=== PATIENT | female | born 1960 | race Caucasian/White ===

== ENCOUNTER 2017-03-10 11:32 | Observation (INO) ==
--- NOTE | 2017-03-10 12:11 | Emergency Department Note ---
Disposition Clinical Impression: Chest pain Qualifiers: Chest pain type: precordial pain Qualified Code(s): R07.2 - Precordial pain Disposition: Home, Self-Care Condition: Good Time of Disposition: 18:42 General Adult HPI - General Chief complaint: ED Chest Pain Stated complaint: Chest discomfort, nausea Time Seen by Provider: 03/10/17 11:55 Source: patient Limitations: no limitations Nursing Notes Reviewed: Yes Vital Signs Reviewed: Yes - History of Present Illness HPI Narrative: Patient began having chest discomfort last night around 11:00. It was present until this morning prior to arrival to emergency department. She describes it as in the center of her chest with no radiation. There are no associated symptoms. Onset was sudden and awoke her from sleep. There are no provoking or alleviating factors. Quality is ache. Pain Scale: 4 - Related Data Home Medications Medication Instructions Recorded Confirmed Lisinopril [Zestril] 5 mg PO DAILY 03/10/17 03/10/17 NIFEdipine XL (24 HR) [Procardia 60 mg PO DAILY 03/10/17 03/10/17 XL] hydroCHLOROthiazide 25 mg PO DAILY 03/10/17 03/10/17 [Hydrochlorothiazide] Allergies Allergy/AdvReac Type Severity Reaction Status Date / Time No Known Allergies Allergy Verified 03/10/17 11:36 All systems ED: reviewed and negative except as stated. Constitutional: Denies: fever, chills ENT ED: Denies: congestion Cardiovascular: Reports: chest pain. Denies: palpitations, dyspnea on exertion , syncope Respiratory: Denies: cough, dyspnea Gastrointestinal: Denies: abdominal pain, nausea, vomiting, diarrhea Genitourinary: Denies: urgency, dysuria, frequency, hematuria Musculoskeletal: Denies: back pain, neck pain Neurological: Denies: headache, weakness Past Medical History - Past Medical History Medical history: Reports: hypertension Psychiatric history: Reports: no psych history - Social History Smoking Status: Current every day smoker Smokeless Tobacco Status: No Alcohol use: Reports: none Drug use: Reports: none Physical Exam - General Limitations: no limitations General appearance: alert, in no apparent distress - Head Head exam: atraumatic, normocephalic - Eye Eye exam: Present: normal appearance, PERRL, EOMI. Absent: scleral icterus - ENT ENT exam: normal exam, normal oropharynx, mucous membranes moist - Neck Neck exam: Present: normal inspection, full ROM, trachea midline - Chest Chest inspection: Present: normal inspection, symmetric chest wall rise. Absent : tenderness - Respiratory Respiratory exam: Present: normal lung sounds bilaterally. Absent: respiratory distress - Cardiovascular Cardiovascular exam: Present: regular rate, normal rhythm, normal heart sounds - Abdominal Exam Abdominal exam: Present: soft, Non-Tender, normal bowel sounds - Extremities Exam Extremities exam: Present: normal inspection, full ROM, normal capillary refill. Absent: tenderness, pedal edema - Back Exam Back exam: Present: normal inspection, full ROM. Absent: tenderness, CVA tenderness (L) - Neurological Exam Neurological exam: Present: alert, oriented X3 - Psychiatric Psychiatric exam: Present: normal affect, normal mood Course Course Narrative: Female patient presenting to the emergency department with complaint of chest pain. She states this started last night at 11:00. This woke her from sleep. She denies any associated symptoms such as shortness of breath diaphoresis or radiation of the pain. When she points where the chest pain was this appears to be epigastric in nature. She states she has had an episode of this pain one other time about a week ago. She did not seek treatment at that time. She states the pain was present up until arrival in the emergency department. She states that she feels comfortable at this time. She denies any shortness of breath. Her lung sounds are clear heart tones are normal. She said she does have a history of acid reflux that she only occasionally takes medication for. She states she ate hamburgers for dinner last night around 5:00 and did not go to bed until 10. She also has a history of high blood pressure that she occasionally takes medication for. She monitors this at home. She is a smoker but has no history of any heart problems. Is no cardiac history in her family other than her father has CHF. She is alert and oriented 3 and in no distress at this time. Her heart sounds are normal lung sounds are clear abdomen is soft and nontender on palpation. I cannot reproduce the pain at this time. She has no edema in any of her extremities. We will do a cardiac workup on patient. Patient's heart score is low risk so 1 troponin should be adequate to rule out ACS at this time. - Reevaluation(s) Reevaluation #1: Pt pain has returned. We will order her pain medication. And get a repeat EKG. Time: 12:52 Reevaluation #2: Patient has EKG changes on her EKG. There is no ST elevation or depression noted however we will be keeping patient for chest pain and new changes. We will admit for Chest pain and EKG changes. Time: 13:11 - Consultations Consultation #1: Spoke with Dr. Bright's nurse Brianda. They have been made aware of the EKG changes and we will fax them EKGs. Time: 13:11 Consultation #2: Dr Arreola accepted Pt in stable condition. Time: 13:44 Vital Signs Temperature 98.2 F 03/10/17 11:36 Pulse Rate 87 03/10/17 11:36 Respiratory Rate 16 03/10/17 11:36 Blood Pressure 94/56 03/10/17 11:36 O2 Sat by Pulse Oximetry 96 03/10/17 11:36 Temperature 99.1 F 03/10/17 18:21 Pulse Rate 74 03/10/17 18:21 Respiratory Rate 16 03/10/17 18:21 Blood Pressure 101/63 03/10/17 18:21 O2 Sat by Pulse Oximetry 96 03/10/17 18:21 Oxygen Delivery Oxygen Delivery Nasal Cannula Medical Decision Making - Medical Records Medical records reviewed: Yes I reviewed the patient's medical records. - Lab Data Lab results reviewed: Yes I reviewed the patient's lab results. Result diagrams: 03/10/17 12:21 03/10/17 12:21 Lab Results 03/10/17 03/10/17 03/10/17 Range/Units 12:21 12:21 12:21 WBC 13.8 H (4.3-11.1) K/mcL RBC 5.41 H (3.82-4.97) M/mcL Hgb 17.7 H (11.5-15.4) g/dL Hct 52.2 H (35.3-44.9) % MCV 96.5 (83.0-100.0) fL MCH 32.7 (28.0-33.3) pg MCHC 33.9 (31.6-35.5) g/dL RDW 12.1 (11.5-14.5) % Plt Count 218 (140-400) K/mcL MPV 10.3 (9.4-12.4) fL Immature Gran % 0.5 (0-4) % Seg Neutrophils % 82.8 % Lymphocytes % 11.6 % Monocytes % 4.5 % Eosinophils % 0.1 % Basophils % 0.5 % Neutrophils # 11.4 H (1.6-8.9) K/mcL Lymphocytes # 1.6 (0.6-4.6) K/mcL Monocytes # 0.6 (0.0-1.3) K/mcL Eosinophils # 0.0 (0.0-0.6) K/mcL Basophils # 0.1 (0.0-0.2) K/mcL D-Dimer (0-500) ng/mLFEU Sodium 136 (136-145) mEq/L Potassium 3.9 (3.5-4.5) mEq/L Chloride 99 (98-109) mEq/L Carbon Dioxide 26 (19-29) mEq/L BUN 5 L (7-20) mg/dL Creatinine 0.72 (0.57-1.11) mg/dL Est GFR ( Amer) > 60 (> 60) Est GFR (Non-Af Amer) > 60 (> 60) BUN/Creatinine Ratio 7 (6-26) Glucose 141 H (70-99) mg/dL Calculated Osmolality 282 (280-300) Calcium 9.6 (8.6-10.8) mg/dL Troponin I 0.00 (0-0.03) ng/mL 03/10/17 Range/Units 12:21 WBC (4.3-11.1) K/mcL RBC (3.82-4.97) M/mcL Hgb (11.5-15.4) g/dL Hct (35.3-44.9) % MCV (83.0-100.0) fL MCH (28.0-33.3) pg MCHC (31.6-35.5) g/dL RDW (11.5-14.5) % Plt Count (140-400) K/mcL MPV (9.4-12.4) fL Immature Gran % (0-4) % Seg Neutrophils % % Lymphocytes % % Monocytes % % Eosinophils % % Basophils % % Neutrophils # (1.6-8.9) K/mcL Lymphocytes # (0.6-4.6) K/mcL Monocytes # (0.0-1.3) K/mcL Eosinophils # (0.0-0.6) K/mcL Basophils # (0.0-0.2) K/mcL D-Dimer 623 H (0-500) ng/mLFEU Sodium (136-145) mEq/L Potassium (3.5-4.5) mEq/L Chloride (98-109) mEq/L Carbon Dioxide (19-29) mEq/L BUN (7-20) mg/dL Creatinine (0.57-1.11) mg/dL Est GFR ( Amer) (> 60) Est GFR (Non-Af Amer) (> 60) BUN/Creatinine Ratio (6-26) Glucose (70-99) mg/dL Calculated Osmolality (280-300) Calcium (8.6-10.8) mg/dL Troponin I (0-0.03) ng/mL - Radiology Data Radiology results reviewed: Yes I reviewed the patient's radiology results.
--- NOTE | 2017-03-10 12:15 | Emergency Department Note ---
START Narrative - START START: I examined this patient and my medical decision-making was reviewed with the CHIEF OF HOSPITAL MEDICINE/PA/Advanced Practice Nurse/Resident Physician. I agree with the documented findings, disposition and treatment plan as described except to the extent set forth below. ED attending: Patient's emergency medicine resident Dr. Parker. Please see copy of this note for H&P evaluation and management and ED disposition. We both had independent [id number] time in contact with this patient. Briefly: A 57-year-old female smoker hypertensive presents with chest discomfort from her from sleep in the midepigastric area. Patient's EKG shows no acute ischemic changes. Heart score is low. Risk. Patient with a troponin and chest x-ray other screening labs. Disposition pending. Patient stable. No prior cardiac workups. Patient took an aspirin earlier and the pain resolved.
[2017-03-10 12:30] LABS: Basophils # 0.1 K/mcL (0.0-0.2); Basophils % 0.5 %; Eosinophils % 0.1 %; Hematocrit 52.2 % (35.3-44.9); Hemoglobin 17.7 g/dL (11.5-15.4); Immature Granulocytes % 0.5 % (0-4); Lymphocytes # 1.6 K/mcL (0.6-4.6); Lymphocytes % 11.6 %; Mean Corpuscular HGB Conc 33.9 g/dL (31.6-35.5); Mean Corpuscular Hemoglobin 32.7 pg (28.0-33.3); Mean Corpuscular Volume 96.5 fL (83.0-100.0); Mean Platelet Volume 10.3 fL (9.4-12.4); Monocytes # 0.6 K/mcL (0.0-1.3); Monocytes % 4.5 %; Neutrophils # 11.4 K/mcL (1.6-8.9); Platelet Count 218 K/mcL (140-400); Red Blood Count 5.41 M/mcL (3.82-4.97); Red Cell Distribution Width 12.1 % (11.5-14.5); Segmented Neutrophils % 82.8 %
[2017-03-10 12:42] LABS: BUN/Creatinine Ratio 7 (6-26); Calcium 9.6 mg/dL (8.6-10.8); Carbon Dioxide 26 mEq/L (19-29); Chloride 99 mEq/L (98-109); Glucose 141 mg/dL (70-99); Osmolality,Calculated 282 (280-300); Potassium 3.9 mEq/L (3.5-4.5); Sodium 136 mEq/L (136-145); eGFR For African Americans > 60 (> 60); eGFR For Non-African Americans > 60 (> 60)
[2017-03-10 12:43] LABS: Blood Urea Nitrogen 5 mg/dL (7-20)
[2017-03-10] MEDS ORDERED: *HR* FentaNYL (PF) 100 MCG/2 ML VIAL IVP ONE (12:50)
[2017-03-10] MEDS ORDERED: Aspirin 81 MG TAB.CHEW PO STA (12:57)
--- NOTE | 2017-03-10 14:33 | Internal Med History&Physical ---
Date of Encounter: 03/10/17 Time of Encounter: 14:00 Assessment and Plan (1) Chest pain Current visit: Yes Status: Acute Patient with history of hypertension and chest pain. High-risk for coronary artery disease. We will place patient in the hospital for observation. Trend troponins. Telemetry. Cardiac stress test if troponins are negative. Check A1c, lipid profile. Aspirin. Nitroglycerin for chest pain. Qualifiers: Chest pain type: precordial pain Qualified Code(s): R07.2 - Precordial pain (2) Tobacco abuse Current visit: Yes Status: Chronic Counseled about cessation. Offered nicotine patch. Patient does not want it at this time. (3) Essential hypertension Current visit: Yes Status: Chronic Monitor blood pressure. Resume home medications. Internal Medicine - H&P: HPI Chief complaint: Chest pain Admitted From: Emergency Dept Plans for Post Hospital Care: Home History of present illness: Ms. Richmond is a 57 year old female patient who has a history of hypertension presented to the ER with complaints of chest and epigastric pain. This began last night at around 11:30 PM. It has been progressively getting worse. No associated shortness of breath. No palpitations. No pedal edema. Pain is a dull aching pain without any radiation. 4 out of 10 in severity. No cough, no fever but she did have some chills. No orthopnea or PND. She does have a history of acid reflux and takes medication for it occasionally but it is not a constant problem for her. No nausea or vomiting Past Med Surg Social Fam HX - Past Medical History Attestation: Yes The following information was validated with the patient. Source: patient Medical history: hypertension Psychiatric history: no psych history - Social History Smoking Status: Current every day smoker Smokeless Tobacco Status: No Alcohol use: none Drug use: none - Additional Family History Additional family history: Reviewed and found to be noncontributory Internal Medicine - H&P: Meds Allergies No Known Allergies Allergy (Verified 03/10/17 11:36) All Systems PM: A 10-system review of systems was performed and is negative for pertinent findings except as documented above in the HPI. - Constitutional Constitutional: malaise, no chills, no fever(s), no night sweats - EENT Eyes: no change in vision, no discharge, no pain, no photophobia Ears: no ear discharge, no ear pain, no tinnitus Nose, mouth and throat: no dysphagia, no nasal discharge, no neck pain, no sore throat - Cardiovascular Cardiovascular ROS IM: chest pain, no diaphoresis, no dyspnea, no lightheadedness, no palpitations, no syncope - Respiratory Respiratory: no cough, no dyspnea, no wheezing, no excessive phlegm production - Gastrointestinal Gastrointestinal: no abdominal pain, no diarrhea, no hematemesis, no hematochezia, no melena, no nausea, no vomiting - Genitourinary Genitourinary: no change in urinary stream, no dysuria, no flank pain, no hematuria - Musculoskeletal Musculoskeletal ROS IM: no numbness, no tingling - Integumentary Integumentary IM: no rash, no unusual bruising - Neurological Neurological ROS: no confusion, no convulsions, no focal weakness, no numbness, no tingling, no tremor(s) - Hematologic/Lymphatic Hematologic/Lymphatic: no easy bruising - Constitutional Vitals: Temp Pulse Resp BP Pulse Ox 98.2 F 80 16 127/86 96 03/10/17 11:36 03/10/17 13:07 03/10/17 14:00 03/10/17 14:00 03/10/17 13:07 General appearance: Present: cooperative, mild distress, A&O X 3, answers questions appropriately - Neck Neck exam general surgery: Present: supple, trachea midline. Absent: lymphadenopathy - Respiratory Respiratory exam: Present: CTAB. Absent: accessory muscle use, rales, rhonchi, wheezes - Cardiovascular Cardiovascular exam: Present: RRR, +S1, +S2. Absent: diastolic murmur, gallop, rubs, systolic murmur - GI/Abdominal GI/Abdominal exam: Present: normal bowel sounds, soft, tenderness (Epigastric), no peritoneal signs. Absent: distended - Extremities Exam Extremities exam: Present: warm, radial pulses palpable and symetrical. Absent : calf tenderness, cyanotic, pedal edema - Neurological Exam Neurological exam: Present: alert, oriented X3, no focal deficits. Absent: facial droop, speech deficit - Skin Skin exam: Present: dry, intact Internal Med - H&P Results - Labs CBC & Chem 7: 03/10/17 12:21 03/10/17 12:21 - EKG Data EKG shows normal: sinus rhythm - Impressions Impressions Chest X-Ray 03/10/17 11:57 IMPRESSION: Mild pulmonary vascular congestion. Moderate emphysematous changes. D/ / Josemanuel Neumann MD / Josemanuel Neumann MD Interpreting Provider: Josemanuel Neumann MD - Attending Attestation This document has been at least partially created by [employer] recognition technology by Dr. Arreola. Errors in grammar, wording or other phrases may exist. If errors are found after the documentation is signed, they will be addressed individually in the addendum section of this document when appropriate.
[2017-03-10] MEDS ORDERED: Naloxone 0.4 MG/ML INJ IVP PRN (14:39)
[2017-03-10] MEDS ORDERED: Acetaminophen 325 MG TABLET PO PRN (14:39)
[2017-03-10] MEDS ORDERED: *HR* OxyCODONE/APAP 5/325 TABLET PO PRN (15:53)
[2017-03-10] MEDS ORDERED: Nitroglycerin 0.4 MG TAB.SUBL SL PRN (15:53)
[2017-03-10] MEDS: Pantoprazole 40 MG VIAL IVP SCH (16:04)
[2017-03-10] MEDS: 0.9 % Sodium Chloride 1,000 ML IVC SCH (16:04)
[2017-03-10] MEDS: *HR* Heparin 5,000 UNIT/ML VIAL SQ SCH (17:06)
[2017-03-11 00:42] LABS: Basophils # 0.1 K/mcL (0.0-0.2); Basophils % 0.5 %; Eosinophils # 0.1 K/mcL (0.0-0.6); Hematocrit 48.1 % (35.3-44.9); Hemoglobin 16.4 g/dL (11.5-15.4); Immature Granulocytes % 0.4 % (0-4); Lymphocytes # 2.4 K/mcL (0.6-4.6); Lymphocytes % 19.2 %; Mean Corpuscular HGB Conc 34.1 g/dL (31.6-35.5); Mean Corpuscular Hemoglobin 32.9 pg (28.0-33.3); Mean Corpuscular Volume 96.6 fL (83.0-100.0); Mean Platelet Volume 10.2 fL (9.4-12.4); Monocytes # 0.8 K/mcL (0.0-1.3); Monocytes % 6.4 %; Neutrophils # 9.1 K/mcL (1.6-8.9); Platelet Count 209 K/mcL (140-400); Red Blood Count 4.98 M/mcL (3.82-4.97); Red Cell Distribution Width 12.2 % (11.5-14.5); Segmented Neutrophils % 72.5 %
[2017-03-11 00:56] LABS: Hemoglobin A1C 5.2 %
[2017-03-11 01:01] LABS: BUN/Creatinine Ratio 10 (6-26); Blood Urea Nitrogen 7 mg/dL (7-20); Calcium 9.2 mg/dL (8.6-10.8); Carbon Dioxide 26 mEq/L (19-29); Chloride 102 mEq/L (98-109); Cholesterol 198 mg/dL (< 200); Glucose 117 mg/dL (70-99); HDL Cholesterol 40 mg/dL (40-59); LDL Cholesterol,Calculated 129 mg/dL (0-99); Osmolality,Calculated 285 (280-300); Potassium 3.3 mEq/L (3.5-4.5); Sodium 138 mEq/L (136-145); Triglycerides 146 mg/dL (< 150); eGFR For African Americans > 60 (> 60); eGFR For Non-African Americans > 60 (> 60)
[2017-03-11] MEDS: 0.9 % Sodium Chloride 1,000 ML IVC SCH ×2 (02:10→15:03)
[2017-03-11] MEDS: *HR* Heparin 5,000 UNIT/ML VIAL SQ SCH ×2 (06:43→17:13)
--- NOTE | 2017-03-11 12:48 | Electrocardiograph Report ---
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
[2017-03-11] MEDS: Pantoprazole 40 MG VIAL IVP SCH (12:56)
[2017-03-11] MEDS: NIFEdipine XL (24 HR) 60 MG TAB.ER.24 PO SCH (12:56)
[2017-03-11] MEDS: Aspirin Enteric Coated 81 MG Tablet PO SCH (12:56)
[2017-03-11] MEDS: hydroCHLOROthiazide 25 MG TABLET PO SCH (12:56)
--- NOTE | 2017-03-11 17:28 | Internal Med Progress Note ---
Date of Encounter: 03/11/17 Time of Encounter: 09:45 - Assessment and plan (1) Chest pain Current Visit: Yes Status: Acute Assessment and plan: Patient reports sudden onset epigastric pain last night at around 11 PM. A continued until early this morning when patient arrived in the emergency department. She denies radiation and there are no other associated symptoms. The onset was sudden and it awakened her from sleep. Nothing makes it better and nothing makes it worse. She does report nausea without vomiting or diaphoresis. She said it is mostly a pressure. Her abdomen is tender to palpation in that area. She also reports that she has reflux. She has no family history of coronary artery disease. She is a smoker and would like a prescription for Chantix on discharge. The pain was relieved in the emergency department by fentanyl and aspirin per patient Her troponins were negative and her CTA showed no evidence of pulmonary embolism or acute pulmonary abnormality. It did show positive COPD changes and a 3 mm adenoma within the left adrenal. Patient was made nothing by mouth, however, nursing staff did not tell the patient this and she had a drink of ski soda this morning. She will have a 2 day stress test because of this. It will be done tomorrow she completed day 1 today. She has been pain-free. Nitroglycerin when necessary chest pain Continue telemetry Stress test finished tomorrow Monitor labs Qualifiers: Chest pain type: precordial pain Qualified Code(s): R07.2 - Precordial pain (2) Tobacco abuse Current Visit: Yes Status: Chronic Assessment and plan: Patient is a smoker and she is amenable to smoking cessation at this time. She would like a prescription for Chantix on discharge (3) Essential hypertension Current Visit: Yes Status: Chronic Assessment and plan: Chronic. Continue home medications. Monitor vital signs per protocol. - Time Spent With Patient less than 15 minutes - Subjective Interval history: Patient reports having epigastric pressure reading a 7 out of 10 without radiation last night prior to arriving in the emergency room. She reported nausea but no vomiting or diaphoresis. She says that it is gone now and has been resolved since she was in the emergency department last night and was relieved with nitroglycerin and aspirin per patient. She has not had any family history of CAD. Her risk factors include age, sex, and smoker. She said that she would like to quit smoking and we discussed the Chantix prescription on discharge. Was no stress test ordered, however, she had been made nothing by mouth. She did have 2 drinks of ski soda, therefore she had to have a 2 day stress test. Will be complete tomorrow. - Constitutional Vitals: Temp Pulse Resp BP Pulse Ox 98.2 F 71 16 99/59 93 03/11/17 15:32 03/11/17 15:32 03/11/17 15:32 03/11/17 15:32 03/11/17 15:32 General appearance: Present: cooperative, mild distress, A&O X 3, no acute distress, answers questions appropriately - Head Head exam: Present: normal inspection - Eye Eye exam: Present: normal appearance, conjuntiva pink - ENT ENT exam: Present: mucous membranes moist, normal exam, normal external ear exam - Neck Neck exam general surgery: Present: normal inspection. Absent: lymphadenopathy , tenderness - Respiratory Respiratory exam: Present: CTAB, rales, rhonchi, wheezes. Absent: decreased breath sounds, respiratory distress - Cardiovascular Cardiovascular exam: Present: RRR, +S1, +S2. Absent: diastolic murmur, systolic murmur - GI/Abdominal GI/Abdominal exam: Present: normal bowel sounds. Absent: distended, hepatomegaly, tenderness - Extremities Exam Extremities exam: Present: normal capillary refill, warm, radial pulses palpable and symetrical. Absent: pedal edema, tenderness - Neurological Exam Neurological exam: Present: alert, oriented X3, no focal deficits, strengths equal and symetr throughout. Absent: facial droop, speech deficit Internal Medicine: Result - Labs CBC & Chem 7: 03/11/17 00:13 03/11/17 00:13 Labs: Short CBC 03/11/17 Range/Units 00:13 WBC 12.5 H (4.3-11.1) K/mcL Hgb 16.4 H (11.5-15.4) g/dL Hct 48.1 H (35.3-44.9) % Plt Count 209 (140-400) K/mcL Neutrophils # 9.1 H (1.6-8.9) K/mcL BMP 03/11/17 00:13 Sodium 138 Potassium 3.3 L Chloride 102 Carbon Dioxide 26 BUN 7 Creatinine 0.67 Glucose 117 H Calcium 9.2 Cardiac Enzymes 03/10/17 03/11/17 Range/Units 18:10 00:13 Troponin I 0.00 0.01 (0-0.03) ng/mL - ABG Interpretation ABG results: PT/INR, D-dimer D-Dimer 623 ng/mLFEU (0-500) H 03/10/17 12:21 Consult Discharge Plan - Plan Referrals: Gemma Aguiar DO [Primary Care Provider] -
[2017-03-12] MEDS: 0.9 % Sodium Chloride 1,000 ML IVC SCH ×2 (00:16→10:02)
[2017-03-12 04:27] LABS: Basophils # 0.1 K/mcL (0.0-0.2); Basophils % 0.7 %; Eosinophils # 0.3 K/mcL (0.0-0.6); Eosinophils % 2.9 %; Hematocrit 46.7 % (35.3-44.9); Hemoglobin 15.8 g/dL (11.5-15.4); Immature Granulocytes % 0.3 % (0-4); Lymphocytes % 32.2 %; Mean Corpuscular HGB Conc 33.8 g/dL (31.6-35.5); Mean Corpuscular Hemoglobin 33.2 pg (28.0-33.3); Mean Corpuscular Volume 98.1 fL (83.0-100.0); Monocytes # 0.7 K/mcL (0.0-1.3); Monocytes % 7.7 %; Neutrophils # 5.3 K/mcL (1.6-8.9); Platelet Count 197 K/mcL (140-400); Red Blood Count 4.76 M/mcL (3.82-4.97); Red Cell Distribution Width 12.4 % (11.5-14.5); Segmented Neutrophils % 56.2 %
[2017-03-12 04:45] LABS: BUN/Creatinine Ratio 14 (6-26); Blood Urea Nitrogen 9 mg/dL (7-20); Calcium 9.1 mg/dL (8.6-10.8); Carbon Dioxide 27 mEq/L (19-29); Chloride 104 mEq/L (98-109); Glucose 89 mg/dL (70-99); Osmolality,Calculated 286 (280-300); Potassium 3.7 mEq/L (3.5-4.5); Sodium 139 mEq/L (136-145); eGFR For African Americans > 60 (> 60); eGFR For Non-African Americans > 60 (> 60)
[2017-03-12] MEDS ORDERED: Regadenoson 0.4 MG/5 ML SYRINGE IVP ONE (06:14)
[2017-03-12] MEDS: *HR* Heparin 5,000 UNIT/ML VIAL SQ SCH (06:37)
[2017-03-12] MEDS: Aspirin Enteric Coated 81 MG Tablet PO SCH (10:02)
[2017-03-12] MEDS: hydroCHLOROthiazide 25 MG TABLET PO SCH (10:02)
[2017-03-12] MEDS: Pantoprazole 40 MG VIAL IVP SCH (10:02)
[2017-03-12] MEDS: NIFEdipine XL (24 HR) 60 MG TAB.ER.24 PO SCH (10:02)
--- NOTE | 2017-03-12 10:05 | Nuclear Medicine Stress Report ---
Regadenoson Nuclear 2 day Name: Nohemi Richmond Date of Study: 03/11/2017 Date: 1960 Ht: 65.0 in Medical Record#: [id number] Age: 57 Wt: 164.0 lb Gender: Female Order #: [id number] Location: [facility] Room: [facility] Supervising Provider: Reagan Soler CNP Reading Physician: Edel Valdez DO Ordering Physician: Amita Arreola MD Primary Care Physician: None Stress Technologist: Jeanette Cast, [employer] WORKER, CCT, CPFT Mail Rider: Austin Wilson Indications: Chest Pain Impression: Perfusion imaging is negative for ischemia or infarct. Pharmacologic ECG was negative for ischemia at the level of heart rate achieved. Gated EF = >70%. History: Hypertension History of Smoking Stress Test Summary: Stress Test Type: Pharmacologic Regadenoson 0.4mg/5ml given IV Baseline Information: Initial Heart Rate: 63 Blood Pressure: 106/58 Stress Information: Stress Time: 4 min sec Test Terminated Due to (primary): As per protocol Maximum Blood Pressure: 110/62 Maximum Heart Rate: 83 Percent Maximum Heart Rate Achieved: 50 Double Product: 9130 METS Reached: 1 Symptoms: Shortness of breath Nuclear Summary: SPECT myocardial perfusion imaging using Tc99m Sestamibi given intravenously was performed at rest and following cardiac stress testing. The resting images were obtained following initial dose of 11.6 mCi. Following stress an additional dose of 33.8 mCi was given at peak exercise or 30 seconds post regadenoson infusion. Medication Given: Time Medication Dose Units Route Findings: Stress Note * Resting ECG demonstrated normal sinus rhythm with leftward axis. * Pharmacologic stress ECG is negative for ischemia at level of heart rate achieved. * No arrhythmias were noted during stress. * Patient had no chest pain during stress. Hemodynamic responses * Normal hemodynamic responses to pharmacologic stress. Study Quality * Study quality was fair. Gated EF > 70% * Gated EF > 70%. Left Ventricle * The left ventricle is not dilated. NORMALS * Normal wall motion. TID * No evidence of transient ischemic dilatation. Lung Uptake * There is no evidence of increase lung uptake. PERFUSION * There is a small sized, primarily fixed mild intensity perfusion defect involving the mid to distal anteroseptum and apex. Wall motion is normal. Findings represent breast artifact. * Other areas demonstrate normal rest and stress perfusion. Updated by Edel Valdez on 03/12/2017 9:58:20 AM electronically signed on 03/12/2017 10:01:22 AM with status of Final
[2017-03-12 11:25] VITALS: BP 84/53
--- NOTE | 2017-03-12 11:48 | Discharge Summary ---
Date of Encounter: 03/12/17 Time of Encounter: 11:40 - Discharge Diagnosis (1) Chest pain Priority: Primary Status: Acute Comments: Patient reported sudden onset epigastric pain that began about 2300 the night of admission. He continued until about 06 100 in the morning yesterday when patient arrived in the emergency department. She denied radiation or no other symptoms. I did waken her from sleep. She reported that she got relief in the ER from aspirin and fentanyl. She does have a history of reflux disease. No family history or personal history of coronary artery disease or early MIs. She is a smoker and will take a prescription for Chantix. Due to being unaware of her nothing by mouth status, patient required a 2 day stress test. Gated EF is greater than 70% and perfusion imaging was negative for ischemia or infarct. I will assume that due to the location and nature of the pain and patient's prior history of GERD, that this was more of a GI/GERD episode. Patient does not take any PPI at home. I will prescribe omeprazole daily. Qualifiers: Chest pain type: precordial pain Qualified Code(s): R07.2 - Precordial pain (2) Tobacco abuse Priority: Secondary Status: Chronic Comments: Patient does smoke around 1/2-3/4 of pack of cigarettes daily. She is interested in smoking cessation and would like to have a Chantix prescription for discharge. (3) Essential hypertension Priority: Secondary Status: Chronic Comments: Chronic. Continue home medications. - Discharge Medications Prescriptions: Omeprazole 20 mg PO DAILY #30 tablet. Varenicline Tartrate [Chantix] 1 each PO DAILY 30 Days Home Medications: Lisinopril [Zestril] 5 mg PO DAILY 03/10/17 [History] NIFEdipine XL (24 HR) [Procardia XL] 60 mg PO DAILY 03/10/17 [History] hydroCHLOROthiazide [Hydrochlorothiazide] 25 mg PO DAILY 03/10/17 [History] Omeprazole 20 mg PO DAILY #30 tablet. 03/12/17 [Rx] Varenicline Tartrate [Chantix] 1 each PO DAILY 30 Days 03/12/17 [Rx] Allergies/Adverse Reactions: Allergies No Known Allergies Allergy (Verified 03/10/17 11:36) Procedures/tests Complete & Pending: Procedures Performed prior 72 hours Category Date Time Status NM cassy perf SPECT multi [NM] Routine Exams 03/11/17 10:00 Taken SP pharm nuclear stress Routine Y 03/12/17 08:00 Completed Date of admission: 03/10/17 13:46 Primary care physician: Gemma Aguiar DO Discharging clinician: Cammie Rosas Anticipated date of discharge: 03/12/17 - Patient Status Disposition: Home, Self-Care Functional capacity at discharge: independent ambulation Overall status at discharge: patient is back to baseline - Discharge Instructions Follow Up With: Gemma Aguiar DO [Primary Care Provider] - 03/19/17 10:40 am Additional Instructions: Start taking Omeprazole in the morning. Start your Chantix when you are ready. I have given you 1 month of it, it is recommended that you take more than 1 month. Follow up with your PCP for refills. Resume taking your other medications. Follow up with your PCP for a follow up visit Return to the ER as needed for any other problems or concerns. - Diet and Activity Activity: increase activity as tolerated Diet: advance to your usual diet Interval History: Patient presented to the emergency department negative admission at about 11 PM complaining of epigastric pain. The pain was sudden and it awakened her from sleep. She said it was a pressure with intermittent sharp pain. There is no radiation, she did have some nausea no vomiting or diaphoresis. Her abdomen was tender to palpation yesterday, it is not today. She reports a history of reflux and no family history or personal history of coronary artery disease or early [place]. She was treated with PPIs while she was here and stated that she felt better today. Her troponins were negative and CTA showed no evidence of pulmonary embolism or acute pulmonary abnormality. It did show positive COPD changes and a 3 mm adenoma within the left adrenal. This does not require any follow-up. Patient had a 2 day stress test due to the fact that she was unaware of her nothing by mouth status. Stress test showed a gated EF of greater than 70% and perfusion imaging was negative for ischemia or infarct. She is pain-free and her labs have remained stable. We discussed smoking cessation and she will be given a prescription for Chantix on discharge. She will also get a prescription for omeprazole 20 mg by mouth daily, as well. Patient is stable and appropriate for discharge. Hospital course: Ms. Richmond is a 57 year old female - Time Spent with Patient Total time spent providing and/or coordinating discharge services: Less than 30 minutes - Constitutional Vitals: Temp Pulse Resp BP Pulse Ox 97.5 F L 73 17 84/53 97 03/12/17 11:22 03/12/17 11:22 03/12/17 11:22 03/12/17 11:22 03/12/17 11:22 General appearance: Present: cooperative, mild distress, A&O X 3, no acute distress, answers questions appropriately - Head Head exam: Present: normal inspection - Neck Neck exam general surgery: Present: normal inspection. Absent: lymphadenopathy , tenderness - Respiratory Respiratory exam: Present: CTAB. Absent: rales, respiratory distress, rhonchi, stridor, wheezes - Cardiovascular Cardiovascular exam: Present: RRR, +S1, +S2. Absent: diastolic murmur, systolic murmur - GI/Abdominal GI/Abdominal exam: Present: normal bowel sounds, soft. Absent: hepatomegaly, tenderness - Extremities Exam Extremities exam: Present: normal capillary refill, warm, radial pulses palpable and symetrical. Absent: pedal edema, tenderness - Neurological Exam Neurological exam: Present: alert, oriented X3, no focal deficits, strengths equal and symetr throughout. Absent: facial droop, speech deficit
== END 2017-03-12 12:37 | disposition home or self-care (01) ==
LOC: EMEROO 11:32 → 3NENU 11:32 → SUATTDRO 13:46 → 3NENU 15:07 → 3BNU 03-12 07:55
PROVIDERS: ADMIT Internal Medicine; ATTEND Internal Medicine

== ENCOUNTER 2019-06-19 07:11 | Inpatient (IN) ==
[2019-06-19] MEDS ORDERED: CeFAZolin Syr 2,000MG/20 ML 2,000 MG/20 ML SYRINGE IVPB ONE (07:40)
[2019-06-19] MEDS ORDERED: Albuterol 2.5 MG/3 ML NEBULIZER IH ONE (07:40)
[2019-06-19] MEDS ORDERED: Calcium Gluconate 1,000 MG/10 ML VIAL ONE (07:42)
[2019-06-19] MEDS ORDERED: Ringers Solution, Lactated 1,000 ML IVC SCH (07:45)
[2019-06-19] MEDS ORDERED: Acetaminophen IV 1,000 MG/100 ML INFUS..BTL IVPB ONE (07:51)
[2019-06-19] MEDS ORDERED: *HR* Remifentanil 1 MG VIAL IVP ONE (07:52)
[2019-06-19] MEDS ORDERED: *HR* FentaNYL (PF) 100 MCG/2 ML VIAL ONE ×2 (07:52→09:06)
[2019-06-19] MEDS ORDERED: *HR* Propofol 200 MG/20 ML VIAL IVP ONE (07:52)
[2019-06-19] MEDS ORDERED: *HR* Midazolam HCl 2 MG/2 ML VIAL ONE (07:52)
[2019-06-19] MEDS ORDERED: *HR* Phenylephrine 10 MG/ML VIAL ONE ×2 (07:54→08:20)
[2019-06-19] MEDS ORDERED: Ondansetron 4 MG/2 ML VIAL ONE ×2 (07:54→12:46)
[2019-06-19] MEDS ORDERED: Lidocaine -MPF 2% 2 ML VIAL ONE ×2 (07:54→12:40)
[2019-06-19] MEDS ORDERED: Lidocaine HCL 4 ML Topical Solution (Laryng-O-Jet Kit Sterile Pak) TP ONE (07:54)
[2019-06-19] MEDS ORDERED: *HR* Rocuronium Bromide 50 MG/5 ML VIAL ONE (07:54)
[2019-06-19] MEDS ORDERED: Heparin 1,000 UNITS/500 mL 500 ML ONE ×2 (07:55→09:55)
[2019-06-19] MEDS ORDERED: *HR* Atropine Sulfate 8 MG/20 ML VIAL IVP ONE (08:31)
[2019-06-19] MEDS ORDERED: Vancomycin 1,000 MG, Sodium Chloride IRRigation 1,000 ML IR ONE (09:00)
[2019-06-19] MEDS ORDERED: Protamine Sulfate 50 MG/5 ML VIAL IVP ONE (09:54)
[2019-06-19] MEDS ORDERED: Bupivacaine-MPF 0.25% 10 ML VIAL ONE (09:55)
[2019-06-19] MEDS ORDERED: EPHEDrine 50 MG/ML VIAL ONE (10:54)
[2019-06-19] MEDS ORDERED: *HR* Heparin 5,000 UNIT/ML VIAL ONE ×2 (11:09→14:53)
[2019-06-19] MEDS ORDERED: Acetaminophen 325 MG TABLET PO PRN ×2 (14:06)
[2019-06-19] MEDS ORDERED: Naloxone 0.4 MG/ML INJ IVP PRN (14:06)
[2019-06-19] MEDS ORDERED: *HR* OxyCODONE Immed Rel 5 MG TABLET PO PRN ×2 (14:06)
[2019-06-19] MEDS ORDERED: *HR* Labetalol 20 MG/4 ML SYRINGE IVP PRN (14:06)
[2019-06-19] MEDS ORDERED: *HR* HYDROcodone/Acet 5/325 mg TABLET PO PRN ×2 (14:06)
[2019-06-19] MEDS ORDERED: 0.9 % Sodium Chloride 1,000 ML IVC SCH (14:06)
[2019-06-19] MEDS: Aspirin Enteric Coated 81 MG Tablet PO SCH (16:03)
[2019-06-19] MEDS: *HR* Metoprolol 5 MG/5 ML VIAL IVP SCH ×2 (16:46→23:59)
[2019-06-20] MEDS ORDERED: *HR* Heparin 5,000 UNIT/ML VIAL SQ SCH ×2 (06:00)
[2019-06-20] MEDS: *HR* Metoprolol 5 MG/5 ML VIAL IVP SCH (06:22)
[2019-06-20 07:13] VITALS: BP 105/51
[2019-06-20] MEDS: Aspirin Enteric Coated 81 MG Tablet PO SCH (08:36)
[2019-06-20] MEDS ORDERED: NIFEdipine XL (24 HR) 30 MG TAB.ER.24 PO SCH (09:00)
[2019-06-20] MEDS ORDERED: hydroCHLOROthiazide 25 MG TABLET PO SCH (09:00)
== END 2019-06-20 11:40 | disposition home or self-care (01) | DRG 39 ==
LOC: SAMDAY 07:11 → 2NNU 13:58
PROVIDERS: ADMIT Surgery; ATTEND Surgery

== ENCOUNTER 2021-06-22 16:35 | Inpatient (IN) ==
[2021-06-22 17:28] LABS: Basophils % 0.2 %; Hematocrit 48.3 % (35.3-44.9); Hemoglobin 16.3 g/dL (11.5-15.4); Immature Granulocytes % 0.5 % (0-4); Lymphocytes # 1.2 K/mcL (0.6-4.6); Lymphocytes % 19.1 %; Mean Corpuscular HGB Conc 33.7 g/dL (31.6-35.5); Mean Corpuscular Hemoglobin 33.7 pg (28.0-33.3); Mean Corpuscular Volume 99.8 fL (83.0-100.0); Mean Platelet Volume 9.8 fL (9.4-12.4); Monocytes # 0.5 K/mcL (0.0-1.3); Monocytes % 7.8 %; Neutrophils # 4.5 K/mcL (1.6-8.9); Platelet Count 157 K/mcL (140-400); Red Blood Count 4.84 M/mcL (3.82-4.97); Segmented Neutrophils % 72.4 %; White Blood Count 6.1 K/mcL (4.3-11.1)
[2021-06-22 17:44] LABS: VBG HCO3 31 mEq/L (21-27); VBG PCO2 46 mmHg (41-51); VBG PH 7.44 pH Units (7.32-7.42); VBG PO2 110 mmHg (25-50)
[2021-06-22 17:52] LABS: Alanine Aminotransferase 7 Units/L (7-52); Albumin 3.7 g/dL (3.5-5.7); Albumin/Globulin Ratio 1.4 (1.1-2.2); Alkaline Phosphatase 69 Units/L (34-104); Aspartate Amino Transferase 14 Units/L (13-39); BUN/Creatinine Ratio 19 (6-26); Bilirubin,Direct 0.1 mg/dL (0.0-0.2); Bilirubin,Indirect 0.2 mg/dL (0.0-1.0); Bilirubin,Total 0.3 mg/dL (0.3-1.0); Blood Urea Nitrogen 12 mg/dL (6-20); C-Reactive Protein < 5 mg/L (Less than 10); Calcium 8.5 mg/dL (8.6-10.3); Carbon Dioxide 33 mEq/L (23-29); Chloride 95 mEq/L (98-107); Globulin 2.7 g/dL (2.4-3.5); Glucose 108 mg/dL (70-105); Osmolality,Calculated 284 (280-300); Potassium 2.9 mEq/L (3.5-5.1); Sodium 137 mEq/L (136-145); Total Protein 6.4 g/dL (6.4-8.9); eGFR For African Americans > 60 (> 60); eGFR For Non-African Americans > 60 (> 60)
[2021-06-22] MEDS ORDERED: 0.9 % Sodium Chloride 1,000 ML IVC ONE (18:03)
[2021-06-22] MEDS ORDERED: Ketorolac 15 MG/ML VIAL IVP ONE (18:03)
[2021-06-22] MEDS ORDERED: Ipratropium/Albuterol Neb 3 ML IH ONE (18:03)
[2021-06-22] MEDS ORDERED: Potassium Chloride Elixir 20 MEQ/15 ML UDC PO ONE (18:07)
[2021-06-22 18:09] LABS: Ferritin 311 ng/mL (10-120)
[2021-06-22 19:03] LABS: Magnesium 2.1 mg/dL (1.6-2.6)
[2021-06-22 19:15] LABS: Troponin I 0.03 ng/mL (< 0.04)
[2021-06-22] MEDS ORDERED: Ringers Solution, Lactated 1,000 ML IVC ONE (19:38)
[2021-06-22] MEDS ORDERED: Remdesivir 200 MG in 0.9 % Sodium Chloride 100 ML IVPB ONE (19:55)
[2021-06-22 20:05] LABS: Influenza A PCR Negative (Negative); Influenza B PCR Negative (Negative); Resp. Syncytial Virus PCR Negative (Negative)
[2021-06-22 20:07] LABS: SARS-CoV-2 by PCR (In House) Positive (Negative)
[2021-06-22] MEDS ORDERED: D5% in Lactated Ringers 1,000 ML IVC SCH ×2 (20:15→23:30)
[2021-06-23] MEDS ORDERED: Acetaminophen 325 MG TABLET PO PRN (02:02)
[2021-06-23] MEDS ORDERED: Ondansetron 4 MG/2 ML VIAL IVP PRN (02:02)
[2021-06-23] MEDS ORDERED: Naloxone 0.4 MG/ML INJ IVP PRN (02:02)
[2021-06-23] MEDS: *HR* Enoxaparin 40 MG/0.4 ML SYRINGE SQ SCH (07:56)
[2021-06-23 08:14] LABS: Basophils % 0.3 %; Hematocrit 49.1 % (35.3-44.9); Immature Granulocytes % 0.3 % (0-4); Lymphocytes % 28.4 %; Mean Corpuscular HGB Conc 32.6 g/dL (31.6-35.5); Mean Corpuscular Hemoglobin 33.1 pg (28.0-33.3); Mean Corpuscular Volume 101.7 fL (83.0-100.0); Mean Platelet Volume 9.7 fL (9.4-12.4); Monocytes # 0.2 K/mcL (0.0-1.3); Neutrophils # 2.2 K/mcL (1.6-8.9); Platelet Count 148 K/mcL (140-400); Red Blood Count 4.83 M/mcL (3.82-4.97); Red Cell Distribution Width 12.9 % (11.5-14.5); White Blood Count 3.4 K/mcL (4.3-11.1)
[2021-06-23 08:42] LABS: Albumin 3.3 g/dL (3.5-5.7); Albumin/Globulin Ratio 1.4 (1.1-2.2); Bilirubin,Indirect 0.2 mg/dL (0.0-1.0); Bilirubin,Total 0.2 mg/dL (0.3-1.0); Globulin 2.3 g/dL (2.4-3.5); Total Protein 5.6 g/dL (6.4-8.9)
[2021-06-23 10:23] LABS: Alanine Aminotransferase 5 Units/L (7-52); Albumin 3.3 g/dL (3.5-5.7); Albumin/Globulin Ratio 1.5 (1.1-2.2); Alkaline Phosphatase 60 Units/L (34-104); Aspartate Amino Transferase 14 Units/L (13-39); BUN/Creatinine Ratio 25 (6-26); Bilirubin,Total 0.2 mg/dL (0.3-1.0); Blood Urea Nitrogen 15 mg/dL (6-20); Calcium 8.3 mg/dL (8.6-10.3); Carbon Dioxide 30 mEq/L (23-29); Chloride 102 mEq/L (98-107); Chol/HDL Ratio 4.9 (0-4.9); Cholesterol 141 mg/dL (< 200); Globulin 2.2 g/dL (2.4-3.5); Glucose 122 mg/dL (70-105); HDL Cholesterol 29 mg/dL (40-59); LDL Cholesterol,Calculated 91 mg/dL (< 100); Magnesium 2.7 mg/dL (1.6-2.6); Osmolality,Calculated 288 (280-300); Potassium 4.4 mEq/L (3.5-5.1); Sodium 138 mEq/L (136-145); Total Protein 5.5 g/dL (6.4-8.9); Triglycerides 105 mg/dL (< 150); eGFR For African Americans > 60 (> 60); eGFR For Non-African Americans > 60 (> 60)
[2021-06-23] MEDS ORDERED: Isovue-370 500 ML BOTTLE IVP ONE (11:34)
[2021-06-23] MEDS: Remdesivir 100 MG in 0.9 % Sodium Chloride 100 ML IVPB SCH (20:15)
[2021-06-24 01:42] LABS: Hematocrit 47.1 % (35.3-44.9); Mean Platelet Volume 9.9 fL (9.4-12.4); Platelet Count 174 K/mcL (140-400); Red Blood Count 4.71 M/mcL (3.82-4.97); Red Cell Distribution Width 12.8 % (11.5-14.5)
[2021-06-24 01:43] LABS: White Blood Count 6.2 K/mcL (4.3-11.1)
[2021-06-24 01:55] LABS: Albumin/Globulin Ratio 1.3 (1.1-2.2); Bilirubin,Indirect 0.2 mg/dL (0.0-1.0); Bilirubin,Total 0.2 mg/dL (0.3-1.0); Globulin 2.3 g/dL (2.4-3.5); Total Protein 5.3 g/dL (6.4-8.9)
[2021-06-24 02:03] LABS: BUN/Creatinine Ratio 42 (6-26); Blood Urea Nitrogen 19 mg/dL (6-20); Carbon Dioxide 29 mEq/L (23-29); Chloride 99 mEq/L (98-107); Glucose 100 mg/dL (70-105); Osmolality,Calculated 282 (280-300); Potassium 4.3 mEq/L (3.5-5.1); Sodium 135 mEq/L (136-145); eGFR For African Americans > 60 (> 60); eGFR For Non-African Americans > 60 (> 60)
[2021-06-24 02:07] LABS: Thyroid Stimulating Hormone 1.016 mcIU/mL (0.340-5.600)
[2021-06-24] MEDS ORDERED: Sennosides/Docusate Sodium TABLET PO PRN (07:16)
[2021-06-24] MEDS: Famotidine 20 MG TABLET PO SCH (08:04)
[2021-06-24] MEDS: *HR* Enoxaparin 40 MG/0.4 ML SYRINGE SQ SCH (08:04)
[2021-06-24] MEDS: Aspirin Enteric Coated 81 MG Tablet PO SCH (08:04)
[2021-06-24] MEDS: Lactulose Oral Soln 20 GM/30 ML UDC PO SCH ×2 (08:05→11:20)
[2021-06-24] MEDS ORDERED: Furosemide 20 MG TABLET PO SCH (09:00)
[2021-06-24] MEDS: Nicotine 21 MG PATCH.TD24 TD SCH (11:55)
[2021-06-24] MEDS: Remdesivir 100 MG in 0.9 % Sodium Chloride 100 ML IVPB SCH (21:25)
[2021-06-25 07:29] LABS: Hematocrit 47.5 % (35.3-44.9); Mean Corpuscular HGB Conc 33.7 g/dL (31.6-35.5); Mean Corpuscular Hemoglobin 33.8 pg (28.0-33.3); Mean Corpuscular Volume 100.4 fL (83.0-100.0); Mean Platelet Volume 10.1 fL (9.4-12.4); Platelet Count 176 K/mcL (140-400); Red Blood Count 4.73 M/mcL (3.82-4.97); Red Cell Distribution Width 13.1 % (11.5-14.5); White Blood Count 8.4 K/mcL (4.3-11.1)
[2021-06-25 07:50] LABS: Albumin 3.2 g/dL (3.5-5.7); Albumin/Globulin Ratio 1.5 (1.1-2.2); Bilirubin,Indirect 0.3 mg/dL (0.0-1.0); Bilirubin,Total 0.3 mg/dL (0.3-1.0); Globulin 2.2 g/dL (2.4-3.5); Total Protein 5.4 g/dL (6.4-8.9)
[2021-06-25 07:54] LABS: BUN/Creatinine Ratio 32 (6-26); Blood Urea Nitrogen 14 mg/dL (6-20); Calcium 8.3 mg/dL (8.6-10.3); Carbon Dioxide 29 mEq/L (23-29); Chloride 102 mEq/L (98-107); Glucose 90 mg/dL (70-105); Osmolality,Calculated 286 (280-300); Potassium 4.3 mEq/L (3.5-5.1); Sodium 138 mEq/L (136-145); eGFR For African Americans > 60 (> 60); eGFR For Non-African Americans > 60 (> 60)
[2021-06-25] MEDS: Famotidine 20 MG TABLET PO SCH (09:18)
[2021-06-25] MEDS: Aspirin Enteric Coated 81 MG Tablet PO SCH (09:18)
[2021-06-25] MEDS: Lactulose Oral Soln 20 GM/30 ML UDC PO SCH (09:23)
[2021-06-25] MEDS: Nicotine 21 MG PATCH.TD24 TD SCH (09:23)
[2021-06-25] MEDS: *HR* Enoxaparin 40 MG/0.4 ML SYRINGE SQ SCH (09:23)
[2021-06-25 11:51] VITALS: BP 107/65; PULSE 57; TEMP 98; O2SAT 95
== END 2021-06-25 20:55 | disposition home or self-care (01) | DRG 177 ==
LOC: EMEROOARM 16:35 → 2NNU 06-23 02:14 → SUATTDRO 06-23 02:14 → 2NNU 06-23 04:19 → 2NENU 06-24 04:41
PROVIDERS: ADMIT Internal Medicine; ATTEND Internal Medicine